=== PATIENT | female | born 1955 | race Caucasian/White ===

== ENCOUNTER → 2023-09-11 07:28 | Outpatient (REF) | payer MEDICARE, SELFPAY | LOC: EMG 07:28 | PROVIDERS: ATTENDING PHYSICIAN Physician Assistant; FAMILY PHYSICIAN Hospitalist | DX: R20.0 Anesthesia of skin (principal); G57.91 Unspecified mononeuropathy of right lower limb | CPT/HCPCS: 95886; 95911 ==